=== PATIENT | female | born 1990 | race Caucasian/White ===

== ENCOUNTER 2019-12-29 09:34 | Day surgery (SDC) ==
[2019-12-29] MEDS ORDERED: Ondansetron ODT 4 MG TAB ONE (10:28)
[2019-12-29] MEDS ORDERED: Morphine 4 MG/ML VIAL ONE (10:28)
[2019-12-29 10:46] LABS: #Basophils 0.1 thou/uL (0.0-0.2); #Eosinphils 0.1 thou/uL (0.0-0.7); #Lymphocytes 2.3 thou/uL (1.20-3.40); #Monocytes 0.9 thou/uL (0.11-0.59); #Neutrophils 10.1 thou/uL (1.40-6.50); %Basophils 0.5 % (0.0-1.0); %Eosinophils 0.5 % (0.0-10.0); %Lymphocytes 17.3 % (21.0-51.0); %Monocytes 6.5 % (0.0-10.0); %Neutrophils 75.2 % (42.0-75.0); Hemoglobin 12.3 g/dL (12.0-16.0); Mean Corpuscular HGB CONC 33.6 g/dL (32.0-36.0); Mean Corpuscular Hemoglobin 30.5 pg (27.0-31.0); Mean Corpuscular Volume 90.7 fL (78.0-98.0); Platelet Count 272 thou/uL (130-400); RBC Distribution Width 12.2 % (11.5-14.5); Red Blood Cell (RBC) Count 4.05 mill/uL (4.20-5.40); White Blood Cell (WBC) Count 13.4 thou/uL (4.8-10.8)
[2019-12-29] MEDS ORDERED: Dexamethasone 20 MG/5 ML VIAL ONE (11:00)
[2019-12-29] MEDS ORDERED: PROPOFOL 200 MG/20 ML VIAL ONE (11:00)
[2019-12-29] MEDS ORDERED: Lidocaine 1% PF 5 ML VIAL ONE (11:00)
[2019-12-29] MEDS ORDERED: Succinylcholine Chloride 20 MG/ML 10 ml SYRINGE FS ONE (11:00)
[2019-12-29] MEDS ORDERED: Ondansetron PF 4 MG/2 ML Vial ONE (11:00)
--- NOTE | 2019-12-29 11:08 | ULT ---
US Pelvic Transvag W Doppler History: Miscarriage this morning. Bleeding. Comparison: None. Findings: Real-time grayscale, color, and spectral analysis of the pelvis was performed transabdomina l and transvaginal approach. Uterus measures 12.1 x 6.7 x 7.9 cm. The endometrial thickness to the fundus is 1 cm. There is debris within the lower endometrial cavity. This debris does not appear to have any internal vascularity. Ovaries are not seen. Impression: Debris within the lower uterine segment without internal vascularity corresponding with t he patient's history of recent miscarriage. Continued clinical follow-up is recommended to evaluate for expulsion of contents.
[2019-12-29] MEDS ORDERED: Lactated Ringer's 1,000 ML IV SCH (12:15)
[2019-12-29] MEDS ORDERED: Midazolam HCl 2 mg/2 ml Vial ONE ×3 (12:52→15:02)
[2019-12-29] MEDS ORDERED: Fentanyl 100 MCG/2 ML VIAL ONE ×2 (13:13→14:53)
[2019-12-29] MEDS ORDERED: Lidocaine 2% Jelly 5 ML TUBE ONE (13:13)
[2019-12-29] MEDS ORDERED: Misoprostol 200 MCG TAB ONE (13:31)
[2019-12-29] MEDS ORDERED: Oxytocin 10 UNITS/ML VIAL ONE (14:22)
[2019-12-29] MEDS ORDERED: Promethazine HCl 25 MG/ML VIAL IM PRN (14:53)
[2019-12-29] MEDS ORDERED: Meperidine HCl/PF 25 MG/ML VIAL SLOW IVP PRN ×2 (14:53)
[2019-12-29] MEDS ORDERED: Promethazine HCl 25 MG/ML VIAL SLOW IVP PRN (14:53)
[2019-12-29] MEDS ORDERED: Ondansetron HCl/PF 4 MG/2 ML Vial IVP PRN (14:53)
[2019-12-29] MEDS ORDERED: Morphine 2 MG/ML SYRINGE ONE (15:44)
[2019-12-29] MEDS ORDERED: Sodium Chloride 0.9% 10 ML ONE (16:34)
--- NOTE | 2019-12-29 23:46 | OP ---
DATE OF PROCEDURE: 12/29/2019 PREOPERATIVE DIAGNOSIS: Incomplete . POSTOPERATIVE DIAGNOSIS: Incomplete . PROCEDURE PERFORMED: Suction curettage of the uterus. [employer] OPERATOR SURGEON: Shayy Neely MD. ANESTHESIA: IV sedation. ESTIMATED BLOOD LOSS: Less than 100 mL. COMPLICATIONS: None. FINDINGS: 1. A 12-week size uterus with open cervix. 2. Small amount of retained products of conception obtained upon suction curettage. INDICATIONS FOR PROCEDURE: Ms. Leon is a 29-year-old white, G2, P1 at a reported 15 weeks gestation, who I was called to see in the ER after mis-caring reportedly 15-week fetus. At the time of her presentation, she was continuing to bleed. Ultrasound demonstrated what appeared to be retained products of conception. Her vital signs were stable and she is afebrile. Decision was made to proceed with suction curettage. The risks of the procedure including anesthesia, bleeding, infection, as well as damage to adjacent organs requiring repair, removal or transfusion were discussed with her in detail and she wishes to proceed. DESCRIPTION OF PROCEDURE: The patient was taken to the operating room and after good IV anesthesia, she was prepped and draped in usual sterile fashion in the dorsal lithotomy position using the Christiano stirrups. Weighted speculum was inserted in the vagina after bimanual exam. The uterus at that time showed a 12-week size uterus with widely open cervix. Once the weighted speculum exam was placed, the anterior aspect of the cervix was grasped with a ring forceps. As the cervix was widely open, it easily accepted a 12 mm Vacurette. Suction curettage was performed and a [id number] amount of tissue was obtained. The sharp curette was then passed through all quadrants and no remaining placental fragments were obtained. Pitocin drip was initiated at the beginning of suction curettage and at the conclusion of the case, 800 mg of Cytotec was placed per rectum. At the conclusion of the case, instrument and sponge counts were correct. The patient was awakened and taken to the recovery room in good condition. Job ID: [id number]
--- NOTE | 2020-01-01 15:48 | PDOC.EVN ---
Event Note - Event Note Event Note: Path returns c/w 15 week fetus. Tissue from D&C c/w degenerated decidua. No atypia seen.
== END 2019-12-29 17:00 | disposition home or self-care (01) ==
LOC: ERS 09:34 → SDC 12:50
PROVIDERS: ATTEND Obstetrics & Gynecology
PROC: 10D17ZZ Extraction of Products of Conception, Retained, Via Natural or Artificial Opening (ICD-10-PCS; principal; 2019-12-29)
DX: O03.4 Incomplete spontaneous abortion without complication (principal); Z88.0 Allergy status to penicillin; Z88.1 Allergy status to other antibiotic agents; Z88.5 Allergy status to narcotic agent
CPT/HCPCS: 36415; 76856; 84702; 85025; 86850; 86900; 86901; 88300; 88305; 90384; 96372; J1100; J2001; J2250; J2270; J2405; J2590; J2704; J3010; Q0162

== ENCOUNTER 2020-03-20 20:37 | Emergency (ER) | payer BC ==
[2020-03-20] MEDS ORDERED: Ketorolac Tromethamine 30 MG/ML VIAL ONE (21:54)
[2020-03-20] MEDS ORDERED: diphenhydrAMINE 50 MG/ML VIAL ONE (21:54)
[2020-03-20] MEDS ORDERED: Metoclopramide HCl 10 MG/2 ML VIAL ONE (21:54)
[2020-03-20 22:16] LABS: #Basophils 0.1 thou/uL (0.0-0.2); #Eosinphils 0.1 thou/uL (0.0-0.7); #Lymphocytes 3.2 thou/uL (1.20-3.40); #Monocytes 0.7 thou/uL (0.11-0.59); #Neutrophils 5.2 thou/uL (1.40-6.50); %Basophils 0.7 % (0.0-1.0); %Eosinophils 1.5 % (0.0-10.0); %Lymphocytes 34.7 % (21.0-51.0); %Monocytes 7.5 % (0.0-10.0); %Neutrophils 55.7 % (42.0-75.0); Hemoglobin 13.9 g/dL (12.0-16.0); Mean Corpuscular HGB CONC 33.2 g/dL (32.0-36.0); Mean Corpuscular Hemoglobin 30.5 pg (27.0-31.0); Mean Corpuscular Volume 91.6 fL (78.0-98.0); Mean Platelet Volume 7.1 fL (7.4-10.4); Platelet Count 265 thou/uL (130-400); RBC Distribution Width 11.6 % (11.5-14.5); Red Blood Cell (RBC) Count 4.56 mill/uL (4.20-5.40); White Blood Cell (WBC) Count 9.3 thou/uL (4.8-10.8)
--- NOTE | 2020-03-20 22:26 | CT ---
Exam: Head CT without contrast HISTORY: Headache COMPARISON: none FINDINGS: Hemorrhage: No intraparenchymal hemorrhage or extra-axial hematoma. Brain parenchyma: Cortical howe-white matter differentiation is preserved. No mass effect or midline shift. Basilar cisterns are patent.Mixed attenuation in the sella, incompletely evaluated. Nonemergent brain MRI using pituitary protocol is recommended. Ventricular system: Ventricles and sulci are patent and symmetric. Calvarium: Intact. Sinuses and mastoid air cells: Adequate aeration. IMPRESSION: 1. No acute intracranial process. 2. Mixed attenuation mass may be present in the sella. Nonemergent brain MRI utilizing pituitary prot ocol is recommended.
[2020-03-20 22:35] LABS: ALT (SGPT) 22 U/L (8-55); AST (SGOT) 55 U/L (5-34); Alkaline Phosphatase 77 U/L (40-110); Anion Gap 12 mmol/L (10-20); BUN (Urea Nitrogen) 13 mg/dL (7.0-18.7); Bilirubin, Total 0.3 mg/dL (0.2-1.2); Calc. Creatinine Clearance 0 mL/min (70-130); Calcium 8.8 mg/dL (7.8-10.44); Carbon Dioxide 23 mmol/L (22-29); Chloride 108 mmol/L (98-107); Estimated GFR-MDRD 82; Globulin 2.7 g/dL (2.4-3.5); Glucose 87 mg/dL (70-105); Potassium 3.9 mmol/L (3.5-5.1); Protein, Total 6.7 g/dL (6.0-8.3); Sodium 139 mmol/L (136-145)
== END 2020-03-20 23:15 | disposition home or self-care (01) ==
LOC: MERGE 20:37 → ERS 20:37
DX: E23.6 Other disorders of pituitary gland (principal); E03.9 Hypothyroidism, unspecified; F41.9 Anxiety disorder, unspecified
CPT/HCPCS: 36415; 70450; 80053; 85025; 87081; 87430; 96365; 96375; J1200; J1885; J2765

== ENCOUNTER 2020-04-11 09:37 | Outpatient (CLI) | payer BC ==
--- NOTE | 2020-04-11 16:21 | MRI ---
MRI BRAIN WITHOUT AND WITH CONTRAST: Comparison: CT brain 03-20-2020 History: Possible mass in the pituitary seen on prior CT. Technique: Multiplanar, multisequence MR images were obtained of the brain without and with IV contra st. FINDINGS: The brain demonstrates normal signal intensity on all obtained sequences. No restricted diffusion or abnormal enhancement are seen within the brain. Thin cuts through the pituitary gland shows a normal appearance of the pituitary and pituitary stalk. There is no evidence of hydrocephalus, intracranial hemorrhage, or extraaxial fluid collection. The e xpected flow voids are present. The corpus callosum and craniocervical junction are unremarkable. There is opacification of the left maxillary sinus. This high T2 signal lesion in the maxillary sinus extends through the middle meatus into the posterior nasal pharynx. This likely represents a large s inonasal polyp extending from the maxillary sinus into the nasopharynx. There is peripheral rim enhan cement of this polyp. The other paranasal sinuses are well aerated. The mastoid air cells are well ae rated. IMPRESSION: 1. No significant intracranial abnormality. 2. Sinal nasal polyposis involving the left maxillary sinus and nasopharynx. POS: EAA
== END 2020-04-11 09:38 | disposition home or self-care (01) ==
LOC: SCSMRI 09:37
PROVIDERS: ATTEND Nurse Practitioner Acute Care
DX: E23.6 Other disorders of pituitary gland (principal); J33.8 Other polyp of sinus; J33.0 Polyp of nasal cavity
CPT/HCPCS: 70553